=== PATIENT | female | born 1990 | race African-American/Black ===

== ENCOUNTER 2016-11-22 08:24 | Day surgery (SDC) | payer OTHER ==
[~2016-11-22] VITALS: Ht 165.1 cm; Wt 45.8 kg
[~2016-11-22 08:24] MED LIST: CITA20TA9 PO; CLINDAMYCIN 900MG PREMIX 50 ML IV PRN; HYDROmorphone 2 MG/ML VIAL IV PRN; IV RINGERS,LACTATED 1000ML 1,000 ML IV SCH; LIDOCAINE 1% 1 ML SYRINGE. ID PRN; MIDAZOLAM HCL/PF 2 MG/2 ML VIAL. ONE; MORPHINE SULFATE 2 MG/ML DISP.SYRIN. IV PRN; MULT-245 PO; PROCHLORPERAZINE 10 MG/2 ML VIAL. IV PRN; SERT100T PO; fentaNYL PF VIAL 100 MCG/2 ML VIAL IV PRN; fentaNYL PF VIAL 250 MCG/5 ML VIAL ONE
[2016-11-22] MEDS ORDERED: CETI10TA22 PO (08:57)
[2016-11-22] MEDS ORDERED: FERRIC SUBSULFATE 8 ML SOL.W.APPL TP ONE (09:11)
[2016-11-22] MEDS ORDERED: LIDOCAINE 1%/EPI 1:100,000 20 ML VIAL. ONE (09:11)
[2016-11-22] MEDS ORDERED: DEXAMETHASONE SOD PHOS 20 MG/5 ML VIAL. ONE (09:21)
[2016-11-22] MEDS ORDERED: ONDANSETRON PF 4 MG/2 ML VIAL. ONE (09:21)
[2016-11-22] MEDS ORDERED: MIDAZOLAM HCL/PF 2 MG/2 ML VIAL. ONE (09:21)
[2016-11-22] MEDS ORDERED: LIDOCAINE 2% PF Vial for OR 5 ML VIAL. ONE (09:21)
[2016-11-22] MEDS ORDERED: PROPOFOL 20 ML IV ONE (09:21)
[2016-11-22 10:19] LABS: NEG OBC UR NEG; POS OBC UR POS
[2016-11-22] MEDS ORDERED: FAMOTIDINE 20 MG/2 ML VIAL ONE (10:48)
--- NOTE | 2016-11-22 11:11 | PDOC ---
BRIEF OPERATIVE NOTE Pre-Op Diagnosis Cervical Dysplasia Post-Op Diagnosis Same Procedure Performed Cervical Biopsy Surgeon Dr. Rodriguez Anesthesia Type: General Blood Loss 10 ml Specimens Obtained cervical cone bx Findings cervical dysplasia Complications none ARSH RODRIGUEZ Jr, MD Nov 22, 2016 11:11
--- NOTE | 2016-11-22 11:12 | DISCH ---
DISCHARGE INSTRUCTIONS Condition on Discharge Condition on Discharge: Stable Activity After Discharge Activity Instructions for Disc: Activity as tolerated Lifting Instructions after Dis: No heavy lifting Driving Instructions after Dis: Do not drive today Diet after Discharge Diet after Discharge: Regular Contacting the DRJoseph after DC Call your doctor for: Concerns you may have Follow-Up Follow up with: Dr. holley in 2 weeks. ARSH HOLLEY Jr, MD Nov 22, 2016 11:12
[2016-11-22] MEDS ORDERED: SEVOFLURANE 16 TO 30 MINUTES. IH ONE (11:24)
[2016-11-22] MEDS ORDERED: KETOROLAC TROMETHAMINE 30 MG/ML INJ. ONE (11:33)
[2016-11-22] MEDS ORDERED: KETOROLAC TROMETHAMINE 30 MG/ML INJ. IV ONE (11:45)
[2016-11-22] MEDS ORDERED: oxyCODONE/APAP 5/325 1 TAB TABLET PO ONE (11:45)
[2016-11-22] MEDS ORDERED: OXYC-323 PO ×2 (11:57→11:58)
[2016-11-22 12:20] VITALS: BP 121/80
--- NOTE | 2016-11-22 14:06 | OP ---
DATE OF SURGERY: 11/22/2016 PREOPERATIVE DIAGNOSIS: Cervical dysplasia. POSTOPERATIVE DIAGNOSIS: Cervical dysplasia. PROCEDURE: Cervical cone biopsy. SURGEON: Dr. Arsh Rodriguez. ANESTHESIA: GETA. ESTIMATED BLOOD LOSS: Less than 10 mL. COMPLICATIONS: None. FINDINGS: Cervical dysplasia. SUMMARY: A 26-year-old with cervical dysplasia, requiring cervical cone biopsy. She was counseled on risks, benefits, and expectations and voiced a clear understanding to proceed. DESCRIPTION OF PROCEDURE: The patient was taken to surgery suite and placed in dorsal lithotomy position, prepped with Betadine solution and draped in sterile fashion. After adequate anesthesia, weighted speculum and curved Marcial placed vaginally. Anterior lip of the cervix was grasped with a single tooth tenaculum. 2-0 Vicryl sutures were placed at the 3 o'clock and 9 o'clock position to better stabilize the cervix. 1% lidocaine with epinephrine was injected in a circumferential manner. Cold knife cone biopsy was performed with 45 degree scalpel, removing the anterior and posterior lip of the cervix in a cone-like configuration. The remaining cervical canal was cauterized with ball cautery and Monsel solution was also applied for hemostasis. The weighted speculum and curved Marcial were removed. The patient tolerated the procedure well and was taken to the recovery room in stable condition. Sponge and needle count correct x 3. ARSH RODRIGUEZ MD DR: NATALEE/trae JOB#: [id number] / [id number]
--- NOTE | 2016-11-26 15:38 | PATHOLOGY ---
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 (JPM:royer; 11/26/2016) COMMENT: Sections of the cervical cone biopsy show focal cellular changes of HPV effect (DASIA I). Several of the segments of squamous epithelium showing DASIA I are detached from the specimen such that I cannot exclude the possibility of DASIA I involving the ectocervical margin. The endocervical margin appears negative. There is no high-grade dysplasia or evidence of malignancy. (JPM:royer; 11/26/2016) REPORT ELECTRONICALLY SIGNED BY: Leo Chavira M.D. DATE/TIME: 11/26/2016 15:37 * * * * * * * * GROSS PATHOLOGY: Received in formalin labeled "Roderick Arriaga, cervical biopsy," is an intact LEEP specimen measuring 1.5 x 0.9 x 1.2 cm in greatest dimensions. The specimen is oriented with a suture marking the 12:00 position. The 0.8 cm cervical os is surrounded by white-brantley, smooth ectocervical mucosa. The endocervical margin is inked blue and the ectocervical margin is inked black. The specimen is divided into four quadrants in a clockwise fashion, sectioned, and entirely submitted as follows: A1 12 to 3:00 margin A2 3 to 6:00 margin A3 6 to 9:00 margin A4 9 to 12:00 margin. (CAA; 11/23/2016) INITIAL CPT CODE(S): A; 20837 Professional services performed by [facility] at [address] [address] Technical services performed by [facility] at [address] [place] [address], [facility] [address] [address]. SPECIMEN(S) RECEIVED: A.Cervical cone biopsy CLINICAL HISTORY: Cervical dysplasia PATIENT: RODERICK ARRIAGA /AGE: 307/06/1990 (Age: 26) PATIENT #: [id number] ALT CASE #: SPECIMEN COLLECTION DATE: 11/22/2016 SPECIMEN RECEIVED DATE: 11/22/2016 [facility] - [address] [place] [address] - PHONE: [phone] * * * END OF REPORT * * *
== END 2016-11-22 12:44 | disposition home or self-care (01) ==
LOC: SURG 08:24
PROVIDERS: ATTEND Obstetrics & Gynecology
DX: N87.9 Dysplasia of cervix uteri, unspecified (principal); F41.9 Anxiety disorder, unspecified; F32.9 Major depressive disorder, single episode, unspecified; Z87.39 Personal history of other diseases of the musculoskeletal system and connective tissue; Z86.69 Personal history of other diseases of the nervous system and sense organs; Z72.89 Other problems related to lifestyle; Z87.891 Personal history of nicotine dependence; Z88.0 Allergy status to penicillin; Z91.040 Latex allergy status
CPT/HCPCS: 57520; 81025; J1100; J1885; J2001; J2250; J2405; J2704; J3010; J3490; S0028; 88307